=== PATIENT | male | born 1985 | race Caucasian/White ===

== ENCOUNTER → 2020-10-22 16:24 | Outpatient (CLI) | payer OTHER, SELFPAY ==
[2020-10-22] MEDS: COVID-19 VACC #1, MRNA(MOD) 100 MCG/0.5 ML VIAL IM (16:26)
== END ==
PROVIDERS: PCP Family Medicine; Visit Provider Internal Medicine
DX: Z23 Encounter for immunization (principal)
CPT/HCPCS: 0011A; 91301

== ENCOUNTER → 2020-11-19 15:56 | Outpatient (CLI) | payer OTHER, SELFPAY ==
[2020-11-19] MEDS: COVID-19 VACC #2, MRNA(MOD) 100 MCG/0.5 ML VIAL IM (16:01)
== END ==
PROVIDERS: PCP Family Medicine; Visit Provider Internal Medicine
DX: Z23 Encounter for immunization (principal)
CPT/HCPCS: 0012A; 91301

== ENCOUNTER → 2023-03-04 16:16 | Outpatient (CLI) | payer SELFPAY ==
--- NOTE | 2023-03-04 16:20 | DI.ECHO.S_ITS ---
[facility] +---------+ : : [address] : [place] : : : : [id number] : : : : Phone: [phone]---------+ Echocardiogram Report + + :Name: WARREN RUIZ Study Date: 03/04/2023 Height: 72 in : :[facility] ReadingLocation: Weight: 172 lb : : Gender: Male BSA: 2.0 m2 : :: 1985 Age: 37 yrs BP: 114/77 mmHg: :Reason For Study: Mid Systolic Click : :Ordering Physician: BENJAMIN, : :YANELY Performed By: Myranda Barahona : :Referring: YANELY ALEXANDER : + + Interpretation Summary The left ventricle is normal in size and wall thickness. The left ventricular ejection fraction is normal. The ejection fraction is estimated to be 55-60%. The right ventricle is mildly dilated. The right ventricular systolic function is normal. There is mild tricuspid regurgitation. The right ventricular systolic pressure is estimated to be at least 29 mmHg based on an estimated right atrial pressure of 8 mm Hg. Procedure: A two-dimensional transthoracic echocardiogram with color flow and Doppler was performed in limited views only. The study quality was technically good. There is no prior echocardiogram noted for this patient. The patient was in sinus bradycardia with heart rates between 49-59 bpm during the exam. Left Ventricle: The left ventricle is normal in size and wall thickness. There is no thrombus. A false chord is noted (normal variant). Trabeculae near apex are visualized. No thrombus is observed. The ejection fraction is estimated to be 55-60%. The left ventricular ejection fraction is normal. There are no focal wall motion abnormalities. Diastolic parameters suggest probable normal left ventricular diastolic function and normal filling pressures. Right Ventricle: The right ventricle is mildly dilated. The right ventricular systolic function is normal. Atria: The left atrium is mildly dilated. The right atrium is mildly dilated. There is no Doppler evidence for an interatrial shunt. Mitral Valve: The mitral valve is normal. There is no mitral valve stenosis. There is trace mitral regurgitation. Aortic Valve: The aortic valve is trileaflet. The aortic valve opens well. There is no aortic valve stenosis. There is no aortic regurgitation. Tricuspid Valve: The tricuspid valve is normal. There is no tricuspid stenosis. There is mild tricuspid regurgitation. The right ventricular systolic pressure is estimated to be at least 29 mmHg based on an estimated right atrial pressure of 8 mm Hg. Pulmonic Valve: The pulmonic valve leaflets are thin and pliable; valve motion is normal. There is no pulmonic valvular stenosis. There is trace pulmonic regurgitation. Great Vessels: The aortic root is normal size. The ascending aorta is normal in size. The pulmonary artery is normal size. The IVC is dilated (diameter is greater than 2.1 cm) yet it collapses greater than 50% with a sniff. This suggests a right atrial pressure of 8 mm Hg. Pericardium/ Pleura There is no pericardial effusion. There is no pleural effusion. MMode/2D Measurements & Calculations LVIDd: 5.2 cm LVOT diam: 2.1 cm LVIDs: 3.3 cm Ao root diam: 2.8 cm FS: 36.5 % asc Aorta Diam: 3.3 cm IVSd: 0.90 cm LVPWd: 1.0 cm LV perez. diameter/BSA (cm/m^2): 2.6 LV sys. diameter/BSA (cm/m^2): 1.7 LA A2 area: 22.7 cm2 RA long axis: 5.6 cm LA A4 area: 22.3 cm2 RA area: 22.0 cm2 LA length (vol): 5.7 cm RA vol: 73.8 ml LA vol: 75.5 ml RA : 36.9 ml/m2 LA vol index: 37.8 ml/m2 IVC diam: 2.3 cm RVD1 (basal): 4.8 cm LVLs ap4: 7.1 cm LVLd ap2: 9.1 cm LVLs ap2: 7.4 cm Doppler Measurements & Calculations Ao V2 max: 163.3 cm/sec LVOT Max Keven: 129.7 cm/sec Ao V2 mean: 112.5 cm/sec LV V1 max P.7 mmHg Ao max P.0 mmHg LV V1 VTI: 27.8 cm Ao mean P.0 mmHg LEEANNA(I,D): 2.5 cm2 Ao V2 VTI: 38.1 cm LEEANNA(V,D): 2.8 cm2 sev ratio: 0.73 LEEANNA indexed to BSA (cm^2/m^2): 1.3 MV E max keven: 102.0 cm/sec TR max keven: 230.8 cm/sec MV A max keven: 47.1 cm/sec TR max P.3 mmHg MV E/A: 2.2 PA V2 max: 90.3 cm/sec Med Peak E' Keven: 12.2 cm/sec PA V2 mean: 65.6 cm/sec E/E' med: 8.4 PA mean P.0 mmHg Lat Peak E' Keven: 16.4 cm/sec PA pr(Accel): 14.6 mmHg E/E' lat: 6.2 E/e' average: 7.3 MV dec time: 0.23 sec SV(LVOT): 96.4 ml Qp/Qs (V,Ao): 1.0/1.5 Qp/Qs (V,LVOT): 1.5/1.0 AV VR_phl: 0.80 LEEANNA(VTI)/BSA_phl: 1.3 Reading Physician:11:14 AM
== END ==
PROVIDERS: PCP Family Medicine; Referring Provider Internal Medicine Cardiovascular Disease; Visit Provider Internal Medicine Cardiovascular Disease
DX: I07.1 Rheumatic tricuspid insufficiency (principal); R01.2 Other cardiac sounds
CPT/HCPCS: 93306